=== PATIENT | female | born 1990 | race Caucasian/White ===

== ENCOUNTER 2017-05-28 13:55 | Outpatient (CLI) | payer BC, MEDICAID ==
[~2017-05-28] VITALS: Ht 160 cm; Wt 79.0 kg
[2017-05-28 14:19] VITALS: BP 125/82
[2017-05-28] MEDS ORDERED: ACET50TA PO (15:08)
[2017-05-28] MEDS ORDERED: PRENTAB9 PO (15:08)
[2017-05-28 15:16] VITALS: BP 140/67
[2017-05-28 15:16] LABS: CALCIUM OXALATE CRYSTALS MODERATE
[2017-05-28] MEDS ORDERED: ONDANSETRON 4MG/2ML VIAL (J2405) IV PRN (15:30)
[2017-05-28] MEDS ORDERED: ACETAMINOPHEN 500 MG TAB PO PRN (15:30)
[2017-05-28] MEDS ORDERED: LACTATED RINGER'S 1000 ML IV ONE (15:30)
[2017-05-28] MEDS ORDERED: MORPHINE 2 MG/ML 1ML SYRINGE IV PRN (15:30)
[2017-05-28] MEDS ORDERED: LR 1,000 ML IV ONE ×2 (16:00→17:45)
--- NOTE | 2017-05-28 16:04 | IPNPDOC ---
Text Note Date of Service The patient was seen on 05/28/17 at 1515. NOTE Subjective: Patient is a 26-year-old female who is a at 20 weeks 5 days gestation with an JANICE of 10/10/2017 based off of her first trimester ultrasound. Her is a result of IVF and resulted in di di twin gestation. Her care was initiated with a woman's perspective at 13 weeks gestation. She presents to labor and delivery today with complaints of pain that started the right side of her back and has migrated down into the right lower quadrant. Reports pain to be localized. Patient reports the pain to constant but at times it becomes worse. Pain presently a 6 out of 10. Patient also vomited 1 time. She denies dysuria. She denies vaginal bleeding or leaking of fluid. Reports active movement. She does report some pressure. She denies having contractions. Medical history: Infertility and varicella-zoster as a child. Surgical history: Ovarian drilling and egg retrieval Family history: Unknown. Patient was adopted. Social history: Patient is . She denies the use of tobacco, alcohol, or drug use. Current medications: vitamins Allergies: Penicillin Objective: Vital signs: See below. heart rate on twin A done by Doppler is 145-155. Twin B heart rate is between 135 and 145. Abdomen: Gravid. Soft to palpation. No tenderness over uterus with palpation. Slight tenderness noted with deep palpation in the far right quadrant in line with her umbilicus. No CVA tenderness. Labs see below. Assessment: Di di twin gestation at 20 weeks 5 days, kidney stones, not in labor Plan: IV saline lock started. Lactated Ringer's bolus 1 L started and then to be ran at 250 mL's per hour. Zofran IV ordered for nausea. Morphine and Tylenol ordered for pain. Reviewed the potential diagnosis of kidney stones with patient and family in the plan of care. Patient verbalized understanding. We'll strain urine. Dr. Horowitz aware with plan and agrees with plan of care. VS,Fishbone, I+O VS, Fishbone, I+O Vital Signs Date Time Temp Pulse Resp B/P (MAP) Pulse Ox O2 Delivery O2 Flow Rate FiO2 05/28/17 14:19 99.3 99 16 125/82 (96) Item Value Date Time Urine Color MAGDI 05/28/17 1430 Urine Appearance TURBID H 05/28/17 1430 Urine pH 6.0 UNITS 05/28/17 1430 Urine Specific [place] 1.018 05/28/17 1430 Urine Protein 1+ mg/dL H 05/28/17 1430 Urine Glucose (UA) NEGATIVE mg/dL 05/28/17 1430 Urine Ketones 1+ mg/dL H 05/28/17 1430 Urine Blood NEGATIVE 05/28/17 1430 Urine Nitrite NEGATIVE 05/28/17 1430 Urine Bilirubin NEGATIVE 05/28/17 1430 Urine Urobilinogen 0.2 mg/dL 05/28/17 1430 Urine Leukocyte Esterase NEGATIVE 05/28/17 1430 Urine WBC (Auto) 10 /HPF H 05/28/17 1430 Urine RBC (Auto) 6 /HPF H 05/28/17 1430 Urine Hyaline Casts (Auto) 0 /LPF 05/28/17 1430 Urine Bacteria (Auto) 1+ H 05/28/17 1430 Urine Calcium Oxalate Cryst (Auto) MODERATE 05/28/17 1430 Urine Squamous Epithelial Cells 12 /HPF 05/28/17 1430 Urine Amorphous Sediment SMALL H 05/28/17 1430 Urine Mucus (Auto) LARGE 05/28/17 1430 THAD MCDONALD CNM May 28, 2017 16:04
[2017-05-28] MEDS ORDERED: ONDANSETRON 4MG/2ML VIAL (J2405) IV ONE (18:15)
[2017-05-28] MEDS ORDERED: MORPHINE 2 MG/ML 1ML SYRINGE IV ONE (18:15)
--- NOTE | 2017-05-28 19:10 | REPUSA ---
Clinical history: Renal stone. Findings: The right kidney measures 10.9 x 5.1 x 5.0 cm. The left kidney measures 12.1 x 6.5 x 5.2 cm . The kidneys demonstrate normal echotexture and echogenicity. There is no evidence of nephrolithiasi s. There is mild right-sided hydronephrosis. No renal masses are seen. No free fluid is appreciated. Twin intrauterine are noted. Impression: Mild right-sided hydronephrosis, likely physiologic in the patient's . Otherwise unremarkable study.
[2017-05-28 19:45] LABS: BASO % 0.2 % (0.0-1.0); EOS # 0.1 K/mm3 (0.0-0.50); EOS % 0.6 % (0.0-3.0); LARGE UNSTAINED CELL % 0.3 % (0.0-4.0); LYMPH # 0.9 K/mm3 (1.5-6.5); LYMPH % 5.6 % (24.0-44.0); MEAN CORPUSCULAR HEMOGLOBIN 30.2 pg (27.0-33.0); MEAN CORPUSCULAR HGB CONC 34.9 g/dl (32.0-36.5); MEAN CORPUSCULAR VOLUME 86.5 fl (80.0-96.0); MONO # 0.3 K/mm3 (0.0-0.8); MONO % 2.1 % (0.0-5.0); NEUTROPHILS # 13.2 K/mm3 (1.8-7.7); NEUTROPHILS % 91.2 % (36.0-66.0); PLATELET COUNT, AUTOMATED 232 k/mm3 (150-450); RED CELL DISTRIBUTION WIDTH 13.4 % (11.5-14.5); WHITE BLOOD COUNT 14.5 K/mm3 (4.0-10.0)
[2017-05-28 19:47] VITALS: BP 101/54
[2017-05-28 20:17] LABS: ALBUMIN 2.6 GM/DL (3.2-5.2); ALBUMIN/GLOBULIN RATIO 0.93 (1.00-1.93); ALKALINE PHOSPHATASE 59 U/L (45-117); ALT/SGPT 14 U/L (12-78); AMYLASE 45 U/L (25-115); ANION GAP 12 MEQ/L (8-16); AST/SGOT 11 U/L (15-37); BILIRUBIN,TOTAL 0.4 MG/DL (0.2-1.0); BLOOD UREA NITROGEN 7 MG/DL (7-18); CALCIUM LEVEL 8.5 MG/DL (8.5-10.1); CARBON DIOXIDE LEVEL 24 MEQ/L (21-32); CHLORIDE LEVEL 107 MEQ/L (98-107); CREATININE FOR GFR 0.59 MG/DL (0.55-1.02); GLOMERULAR FILTRATION RATE > 60.0 (>60); GLUCOSE, FASTING 92 MG/DL (70-105); POTASSIUM SERUM 3.5 MEQ/L (3.5-5.1); SODIUM LEVEL 143 MEQ/L (136-145); TOTAL PROTEIN 5.4 GM/DL (6.4-8.2)
[2017-05-28] MEDS ORDERED: PROMETHAZINE INJ 25 MG/ML VIAL (J2550) IV ONE (21:00)
[2017-05-28] MEDS: MORPHINE 4 MG/ML 1ML SYRINGE IV PRN ×2 (21:35→23:54)
--- NOTE | 2017-05-28 22:46 | IPNPDOC ---
Text Note Date of Service The patient was seen on 05/28/17 at 2000. NOTE Subjective: patient reports that she feels better currently with pain 4/10 and dull and constant. She had an episode for about 1.5 hours of sharp, colicky pain that is centralized and has moved slightly lower in the right lower quadrant. She rated her pain a 9/10. She also vomited 5 times when she had that pain. She denies feeling any contractions, denies back pain, denies leaking of fluid, or vaginal bleeding. Reports active movement. Objective: See labs below. [place]: occasional contractions noted that are very irregular. Assessment: Di/di twin gestation at 20.5 weeks gestation, nephrolithiasis, not in labor Plan: Labs completed and normal. Continue with IV fluids, IV pain management, and antiemetics. Dr. Horowitz aware of plan. VS,Fishbone, I+O VS, Fishbone, I+O Laboratory Tests 05/28/17 19:38 Red Blood Count 3.88 L, Mean Corpuscular Volume 86.5, Mean Corpuscular Hemoglobin 30.2, Mean Corpuscular Hemoglobin Concent 34.9, Red Cell Distribution Width 13.4, Neutrophils (%) (Auto) 91.2 H, Lymphocytes (%) (Auto) 5.6 L, Monocytes (%) (Auto) 2.1, Eosinophils (%) (Auto) 0.6, Basophils (%) (Auto ) 0.2, Neutrophils # (Auto) 13.2 H, Lymphocytes # (Auto) 0.9 L, Monocytes # ( Auto) 0.3, Eosinophils # (Auto) 0.1, Basophils # (Auto) 0.0, Calcium Level 8.5, Aspartate Amino Transf (AST/SGOT) 11 L, Alanine Aminotransferase (ALT/SGPT) 14, Alkaline Phosphatase 59, Total Bilirubin 0.4, Total Protein 5.4 L, Albumin 2.6 L Item Value Date Time Sodium Level 143 MEQ/L 05/28/171937 Potassium Level 3.5 MEQ/L 05/28/171937 Chloride Level 107 MEQ/L 05/28/171937 Carbon Dioxide Level 24 MEQ/L 05/28/171937 Anion Gap 12 MEQ/L 05/28/171937 Blood Urea Nitrogen 7 MG/DL 05/28/171937 Creatinine 0.59 MG/DL 05/28/171937 Glomerular Filtration Rate > 60.0 05/28/171937 Fasting Glucose 92 MG/DL 05/28/171937 Calcium Level 8.5 MG/DL 05/28/171937 Total Bilirubin 0.4 MG/DL 05/28/171937 Aspartate Amino Transf (AST/SGOT) 11 U/L L 05/28/171937 Alanine Aminotransferase (ALT/SGPT) 14 U/L 05/28/171937 Alkaline Phosphatase 59 U/L 05/28/171937 Total Protein 5.4 GM/DL L 05/28/171937 Albumin 2.6 GM/DL L 05/28/171937 Albumin/Globulin Ratio 0.93 L 05/28/171937 Amylase Level 45 U/L 05/28/171937 Lipase 121 U/L 05/28/171937 Vital Signs Date Time Temp Pulse Resp B/P (MAP) Pulse Ox O2 Delivery O2 Flow Rate FiO2 05/28/17 21:35 18 05/28/17 19:47 98.5 100 101/54 (70) Renal ultrasound Findings: The right kidney measures 10.9 x 5.1 x 5.0 cm. The left kidney measures 12.1 x 6.5 x 5.2 cm. The kidneys demonstrate normal echotexture and echogenicity. There is no evidence of nephrolithiasis. There is mild right- sided hydronephrosis. No renal masses are seen. No free fluid is appreciated. Twin intrauterine are noted. Impression: Mild right-sided hydronephrosis, likely physiologic in the patient' s . Otherwise unremarkable study. THAD MCDONALD CNM May 28, 2017 22:46
[2017-05-29] MEDS: ONDANSETRON 4MG/2ML VIAL (J2405) IV PRN ×2 (00:03→06:33)
[2017-05-29 00:12] VITALS: BP 112/71
[2017-05-29] MEDS ORDERED: MORPHINE 2 MG/ML 1ML SYRINGE As Ordered ONE (07:00)
[2017-05-29 07:14] VITALS: BP 117/75
[2017-05-29 09:30] VITALS: BP 111/68
[2017-05-29] MEDS ORDERED: PERCOCET 5MG/325MG TAB PO PRN (10:45)
[2017-05-29 11:30] VITALS: BP 116/70
[2017-05-29 14:36] VITALS: BP 118/66
[2017-05-29] MEDS ORDERED: OXYC1TAB23 PO (15:12)
[2017-05-29] MEDS ORDERED: MACR100C43 PO (15:12)
== END 2017-05-29 15:16 | disposition home or self-care (01) ==
LOC: M LDO 13:55
PROVIDERS: ATTEND Advanced Practice Midwife
DX: O99.89 Other specified diseases and conditions complicating pregnancy, childbirth and the puerperium (principal); Z3A.20 20 weeks gestation of pregnancy; M54.5 Low back pain; R10.9 Unspecified abdominal pain; N20.0 Calculus of kidney; N39.0 Urinary tract infection, site not specified; Z88.0 Allergy status to penicillin
CPT/HCPCS: 36415; 76775; 80053; 81001; 82150; 83690; 85025; 87086; 96374; 96375; 96376; J2405

== ENCOUNTER 2017-05-30 09:38 | Outpatient (CLI) | payer BC ==
[~2017-05-30] VITALS: Ht 160 cm; Wt 82.0 kg
[~2017-05-30 09:38] MED LIST: ACET50TA PO; MACR100C43 PO; OXYC1TAB23 PO; PRENTAB9 PO
[2017-05-30] MEDS ORDERED: LACTATED RINGER'S 1000 ML IV STA (09:58)
[2017-05-30] MEDS ORDERED: MORPHINE 10 MG/ML 1ML VIAL IV ONE ×2 (10:00→14:30)
[2017-05-30] MEDS ORDERED: PROMETHAZINE INJ 25 MG/ML VIAL (J2550) IV PRN (10:00)
[2017-05-30 11:07] VITALS: BP 136/69
[2017-05-30] MEDS ORDERED: TAMSULOSIN 0.4 MG CAP PO ONE (11:45)
--- NOTE | 2017-05-30 12:05 | ED PDOC ---
Provider Note Subjective: Patient is a 26-year-old female who is a at 21 weeks gestation with an JANICE of 10/10/2017 based off of her first trimester ultrasound. Her is a result of IVF and resulted in di di twin gestation. She presents to labor and delivery today complaining of continued right-sided flank pain that is located right above her iliac crest on the right. She states that this morning she had some much pain she can stand up. The pain started on Monday, she was previously seen at [facility] on May 28 and . Urinalysis showed turbid hazy urine, protein +1, ketones +1 , WBC 10, RBC 6, urine bacteria 1+, moderate calcium oxalate crystals, and small amounts of amorphous sediment. She was discharged with Percocet and Macrobid secondary to UTI. Today, she reports her pain to be localized. Patient reports the pain to constant but at times it becomes worse. Pain presently a 4 out of 10. Patient admits to increased nausea and vomiting. She states that her urine is dark but denies dysuria. She denies vaginal bleeding or leaking of fluid. Reports active movement. She does report some pressure. She denies having contractions. Medical history: Infertility Surgical history: Ovarian drilling and egg retrieval Family history: Unknown. Patient was adopted. Social history: Patient is . She denies the use of tobacco, alcohol, or drug use. Current medications: Macrobid (day 2), Percocet when necessary for pain, vitamins Allergies: Penicillin Objective: Vital signs: Respiratory rate is 20, patient is afebrile. heart rate on twin A done by Doppler is in the 140s. Twin B heart rate is in the 150s. Abdomen: Gravid. Soft to palpation. No tenderness over uterus with palpation. Tenderness is noted on the right side, just above the right iliac crest. Back: Right-sided CVA tenderness. Pain increased from 4 to 7. Labs: Urinalysis: Color is yellow, protein +2, ketone +2, WBC 2, RBC 0, bacteria +1 Assessment: Di di twin gestation at 21 weeks, right-sided nephrolithiasis, UTI, not in labor Plan: 1. Right-sided nephrolithiasis: Observe outpatient, IV saline lock started. Lactated Ringer's bolus 1 L started and then to be ran at 125 mL's per hour. Promethazine 25 mg IV ordered for nausea. Morphine 5 mg ordered for pain. Tamsulosin 0.4 mg by mouth ordered once, patient will take when she is feeling like she can keep something down. 2. UTI: We'll continue Macrobid antibiotic, she is on day 2. ROBERT PLUMMER DO May 30, 2017 12:05
[2017-05-30] MEDS: LR 1,000 ML IV SCH ×2 (12:16→17:58)
[2017-05-30] MEDS ORDERED: ONDANSETRON 4MG/2ML VIAL (J2405) IV ONE (14:15)
[2017-05-30 14:21] VITALS: BP 134/77
[2017-05-30] MEDS: NITROFURANTOIN (MACROBID) 100 MG CAP PO SCH ×2 (14:44→20:54)
[2017-05-30 17:25] VITALS: BP 117/81
[2017-05-30] MEDS ORDERED: PERCOCET 5MG/325MG TAB PO PRN (17:45)
[2017-05-30] MEDS ORDERED: PROMETHAZINE 25 MG TAB PO ONE (17:45)
[2017-05-30 20:53] VITALS: BP 121/71
[2017-05-30 21:10] VITALS: BP 121/71
--- NOTE | 2017-05-30 23:18 | HPE ---
DATE OF ADMISSION: 05/30/2017 CHIEF COMPLAINT: Right flank pain. HISTORY OF PRESENT ILLNESS: The patient is a 26-year-old female who is G1, P0, 20 weeks gestation with an estimated date of confinement of 10/10/2017 based off of first trimester ultrasound. The is the result of IVF and resulted in dichorionic/diamniotic twin gestation. She presents to labor and delivery today complaining of continued right-sided flank pain that is located right above her iliac crest on the right. She states that this morning she had so much pain she could not stand up. The pain started on Monday. She was previously seen at [facility] on May 28 and . Urinalysis showed turbid hazy urine. Protein +1. Ketones +1. WBC 10, RBC 6, urine bacteria 1+, moderate calcium oxylate crystals and small amounts of amorphous sediment. She was discharged with Percocet and Macrobid secondary to urinary tract infection (UTI). Today she reports her pain to be localized. The patient reports the pain to be constant, but at times it becomes worse. Pain presently is a 4 out of 10. The patient admits to increased nausea and vomiting. She states that she has not been able to eat or drink anything overnight. She states that her urine is dark, but denies dysuria. She denies vaginal bleeding or leaking of fluid and she reports active movement. She does also report some pressure, but she denies having contractions. MEDICAL HISTORY: Infertility. SURGICAL HISTORY: Ovarian drilling and egg retrieval. FAMILY HISTORY: Unknown, patient was adopted. SOCIAL HISTORY: The patient is . She denies use of tobacco, alcohol or drug use. CURRENT MEDICATIONS: - Macrobid (hasn't started due to nausea) - Percocet as needed for pain - vitamins ALLERGIES: PENICILLIN PHYSICAL EXAMINATION: VITAL SIGNS: Temperature 98.6, pulse 97, respiratory rate 20, blood pressure 136/69 with a mean arterial pressure (MAP) of 91. heart rate done by Doppler: Twin A is in the 140s, Twin B with heart rate was in the 150s. Abdomen: Gravid. Soft to palpation. No tenderness over uterus with palpation. There is tenderness noted on the right side, just above the iliac crest. Back: Right- sided CVA tenderness. Mike punch positive on the right- pain increased from 4 to 7. LABS: Urinalysis. Color is yellow. Protein +2, ketones +2, WBC 2, RBC 0. Bacteria +1. ASSESSMENT: Dichorionic/diamniotic twin gestation at 21 weeks. Right-sided nephrolithiasis, UTI, not in labor. PLAN: 1. Right-sided nephrolithiasis. Observe outpatient. IV saline lock started. Lactated Ringer's bolus, 1 liter started and then to be run at 125 mL per hour. Promethazine 25 mg IV ordered for nausea. Morphine 5 mg ordered for pain. Tamsulosin 400 mcg by mouth ordered once, patient will take when she is feeling well enough to keep something down. 2. Urinary tract infection. We will start Macrobid when her nausea decreases. My preceptor for this patient encounter was Dr. Jess Rothman. The preceptor was physically present in the building during the encounter and was fully available. As needed, all aspects of the patient interview, examination, medical decision making process, and medical care plan development were reviewed and approved by the preceptor. The preceptor is aware and concurs with the plan as stated in the body of this note and will attest to such by his/her cosignature. GAURAVD
[2017-05-30] MEDS ORDERED: PROMETHAZINE 25 MG TAB PO PRN (23:30)
[2017-05-31 01:06] VITALS: BP 110/55
[2017-05-31] MEDS: LR 1,000 ML IV SCH (01:58)
[2017-05-31 04:57] VITALS: BP 128/76
[2017-05-31 07:24] VITALS: BP 133/66
[2017-05-31] MEDS: NITROFURANTOIN (MACROBID) 100 MG CAP PO SCH (08:00)
== END 2017-05-31 08:30 | disposition home or self-care (01) ==
LOC: M LDO 09:38
PROVIDERS: ATTEND Obstetrics & Gynecology
DX: O99.89 Other specified diseases and conditions complicating pregnancy, childbirth and the puerperium (principal); R10.9 Unspecified abdominal pain; O30.042 Twin pregnancy, dichorionic/diamniotic, second trimester; N20.0 Calculus of kidney; Z88.0 Allergy status to penicillin; O23.42 Unspecified infection of urinary tract in pregnancy, second trimester; O21.9 Vomiting of pregnancy, unspecified
CPT/HCPCS: 59025; 76815; 81001; 96374; 96375; 96376; J2405

== ENCOUNTER → 2017-06-15 | Outpatient (CLI) | payer BC ==
--- NOTE | 2017-06-15 16:35 | REP ---
TWIN OB ULTRASOUND: Real-time sonographic evaluation of the gravid uterus is performed. There is a living diamniotic dichorionic twin gestation. Placenta is posterior for fetus A and anterior for fetus B, grade 1, with no previa or abruption. Cervix is closed and measures 4.4 cm in length. The estimated gestational age is 23 weeks 2 days with EDC 10/10/2017. There is appropriate concordant growth. FETUS A: BPD 56 mm = 23 weeks 1 day, at the 47th percentile. HC 211 mm = 23 weeks 1 day, at the 46th percentile. AC 182 mm = 23 weeks 0 days, at the 44th percentile. Femur length 42 mm = 23 weeks 4 days, at the 57th percentile. HC/AC ratio 1.16 within normal range. Estimated weight 576 grams at the 43rd percentile. Cervix is closed measures 4.4 cm in length. heart rate 136 beats per minute. Amniotic fluid appears within normal limits with the deepest pocket of fluid around fetus A, 4.6 cm. Visualized anatomy today includes the posterior fossa, four chamber heart, stomach, cord insertion, three vessel cord and bladder. position is vertex on the maternal left side. FETUS B: BPD 56 mm = 23 weeks 1 day, at the 46th percentile. HC 219 mm = 24 weeks 0 days, at the 70th percentile. AC 185 mm = 23 weeks 2 days, at the 49th percentile. Femur length 42 mm = 23 weeks 4 days, at the 58th percentile. HC/AC ratio 1.19 within normal range. Estimated weight 596 grams at the 49th percentile. heart rate 147 beats per minute. Amniotic fluid appears within normal limits with the deepest pocket of fluid around fetus B, 6.0 cm. Visualized anatomy today includes the lateral ventricles, posterior fossa, four chamber heart, ventricular outflow tracts, stomach, cord insertion, three vessel cord, kidneys and bladder which are all grossly unremarkable. position is transverse with head toward the maternal left side, with the fetus located on the maternal right side. Signed by Luis Fowler MD 06/15/2017 05:11 P
== END ==
LOC: M SMT 13:58
PROVIDERS: ATTEND Specialist
DX: O30.041 Twin pregnancy, dichorionic/diamniotic, first trimester (principal); Z3A.23 23 weeks gestation of pregnancy

== ENCOUNTER → 2017-07-07 | Outpatient (CLI) | payer BC ==
[~2017-07-07] MED LIST changes: +FLUT1LOT EX; +URSO1TAB6 PO
[2017-07-07 13:56] LABS: BASO % 0.4 % (0.0-1.0); EOS # 0.1 K/mm3 (0.0-0.50); EOS % 0.7 % (0.0-3.0); LARGE UNSTAINED CELL # 0.1 K/mm3 (0.0-0.4); LARGE UNSTAINED CELL % 1.1 % (0.0-4.0); LYMPH # 1.2 K/mm3 (1.5-6.5); LYMPH % 9.9 % (24.0-44.0); MEAN CORPUSCULAR HEMOGLOBIN 30.1 pg (27.0-33.0); MEAN CORPUSCULAR HGB CONC 34.4 g/dl (32.0-36.5); MEAN CORPUSCULAR VOLUME 87.6 fl (80.0-96.0); MONO # 0.5 K/mm3 (0.0-0.8); MONO % 4.2 % (0.0-5.0); NEUTROPHILS # 10.1 K/mm3 (1.8-7.7); NEUTROPHILS % 83.7 % (36.0-66.0); PLATELET COUNT, AUTOMATED 281 k/mm3 (150-450); RED CELL DISTRIBUTION WIDTH 13.5 % (11.5-14.5)
== END ==
LOC: M SMT 10:45
PROVIDERS: ATTEND Specialist
DX: O30.041 Twin pregnancy, dichorionic/diamniotic, first trimester (principal)

== ENCOUNTER → 2017-07-12 | Outpatient (CLI) | payer BC | LOC: M LAB 08:26 | PROVIDERS: ATTEND Specialist | DX: O30.042 Twin pregnancy, dichorionic/diamniotic, second trimester (principal); Z3A.00 Weeks of gestation of pregnancy not specified ==

== ENCOUNTER → 2017-07-26 | Outpatient (CLI) | payer BC ==
--- NOTE | 2017-07-27 08:32 | REP ---
Clinical: well-being -- Twin gestation. Comparison: 06/15/2017 . Findings: Examination demonstrates known diamniotic dichorionic twin gestation with placenta identified posteriorly and grade 1 (twin A) and anteriorly and grade 1 (twin B) without evidence for placenta previa or abruption. Cervix measures 3.2 cm cm in length and appears closed. Gestational age by LMP and first US 29 weeks 1 day with JANICE 10/10/2017 . TWIN A: Twin A identified in transverse (head to maternal right) presentation along the maternal left side. motion is appreciated. Amniotic fluid volume is normal and the deepest pocket measures 3.5 cm. Gestational age by current measurements 29 weeks 2 days. FHR equals 141 beats per minute. Estimated weight 1404 grams ( 51st percentile). Biophysical profile score equals 8/8 Umbilical cord SD ratio equals 4.09 (2.50 - 3.50) ------- TWIN B: Twin B identified in transverse (head to maternal left) presentation along the maternal right side. motion is appreciated. Amniotic fluid volume is normal and the deepest pocket measures 3.9 cm. Gestational age by current measurements 30 weeks 3 days. FHR equals 141 beats per minute. Estimated weight 1637 grams ( 82nd percentile). Biophysical profile score equals 8/8 Umbilical cord SD ratio equals 3.71 (2.50 - 3.50) Impression: 1. Twin gestation with growth as documented above. 2. Umbilical cord SD ratio is are mildly elevated. Signed by Jovani Salgado MD 07/27/2017 08:23 A
== END ==
LOC: M SMT 11:30
PROVIDERS: ATTEND Obstetrics & Gynecology
DX: O30.042 Twin pregnancy, dichorionic/diamniotic, second trimester (principal); Z3A.39 39 weeks gestation of pregnancy

== ENCOUNTER → 2017-07-31 | Outpatient (REF) | payer BC | LOC: M LAB REF 12:54 | PROVIDERS: ATTEND Advanced Practice Midwife | DX: Z34.83 Encounter for supervision of other normal pregnancy, third trimester (principal) ==

== ENCOUNTER → 2017-08-04 | Outpatient (CLI) | payer BC ==
--- NOTE | 2017-08-04 15:16 | REP ---
Obstetric ultrasound, twin gestation, follow-up for biophysical profile: There is a twin diamniotic dichorionic gestation. The placenta of twin A is anterior and grade 1. The placenta of twin B A is posterior grade one. There is no placenta previa or abruptio. Twin A is in a transverse lie with the head to the maternal right and situated slightly to the left of midline in the uterus. Twin B is in transverse lie with the head to the maternal left is joint is slightly to the right of midline in the uterus. The amniotic fluid volume for twin A is subjectively normal. The deepest amniotic fluid pocket is 6.6 cm. The amniotic fluid volume for twin B is subjectively normal. The deepest amniotic fluid pocket is 4.2 cm. Twin A biophysical profile Breathing 2 Movement 2 Tone 2 AFV 2 Total 8 /8 Twin B biophysical profile Breathing 2 Movement 2 Tone 2 AFV 2 Total 8/ 8 Twin A umbilical cord Doppler S/D ratio 3.27 (2.30-3.30) Resistive Index 7.0 (0.59-0.75 Diastolic Velocity 14.3 (>10 cm/sec) Twin B umbilical cord Doppler S/D ratio 2.94 (2.30-3.30) Resistive Index 0.66 (0.59-0.75 Diastolic Velocity 14.3 (>10 cm/sec) Signed by Luis Ornelas MD 08/04/2017 03:09 P
== END ==
LOC: M SMT 13:46
PROVIDERS: ATTEND Advanced Practice Midwife
DX: O30.042 Twin pregnancy, dichorionic/diamniotic, second trimester (principal)

== ENCOUNTER → 2017-08-05 | Outpatient (CLI) | payer BC ==
[2017-08-05 16:29] LABS: ALBUMIN 2.4 GM/DL (3.2-5.2); ALBUMIN/GLOBULIN RATIO 0.77 (1.00-1.93); BILIRUBIN,DIRECT 0.2 MG/DL (0.0-0.2); BILIRUBIN,TOTAL 0.4 MG/DL (0.2-1.0); TOTAL PROTEIN 5.5 GM/DL (6.4-8.2)
== END ==
LOC: M LAB 15:29
PROVIDERS: ATTEND Specialist
DX: O26.613 Liver and biliary tract disorders in pregnancy, third trimester (principal)

== ENCOUNTER → 2017-08-14 | Outpatient (CLI) | payer BC ==
--- NOTE | 2017-08-15 04:36 | REP ---
Clinical: Growth evaluation -- Twin gestation. Comparison: 08/04/2017 . Findings: Examination demonstrates known advanced diamniotic dichorionic twin gestation with placenta identified posterior and grade one for twin A, and anterior and grade 1 for twin B without evidence for placenta previa or abruption. Cervix appears closed. Gestational age by LMP 31 weeks 6 days with estimated date of delivery 10/10/2017. TWIN A: Twin A identified in breech presentation along the maternal left side. motion is appreciated. Amniotic fluid volume is normal and the deepest pocket measures 3.3 cm. Gestational age by current measurements 31 weeks 1 day. FHR equals 150 beats per minute. Estimated weight 1776 grams ( 35th percentile). Biophysical profile score equals 8/8. Umbilical cord SD ratio equals 3.41. ------- TWIN B: Twin B identified in variable presentation along the maternal right side. motion is appreciated. Amniotic fluid volume is normal and the deepest pocket measures 4.4 cm. Gestational age by current measurements 32 weeks 6 days. FHR equals 139 beats per minute. Estimated weight 2057 grams ( 62nd percentile). Biophysical profile score equals 8/8. Umbilical cord SD ratio equals 3.03 Impression: Advanced diamniotic dichorionic twin gestation demonstrating growth within normal range. Biophysical profile score equals 8/8 for each twin. Signed by Jovani Salgado MD 08/15/2017 04:27 A
== END ==
LOC: M SMT 13:27
PROVIDERS: ATTEND Advanced Practice Midwife
DX: O30.042 Twin pregnancy, dichorionic/diamniotic, second trimester (principal)

== ENCOUNTER 2017-09-07 15:43 | Outpatient (CLI) | payer BC ==
[~2017-09-07 15:43] MED LIST changes: -FLUT1LOT EX; -IBUP80TA PO; -RA C PO; -URSO1TAB6 PO
[2017-09-07] MEDS ORDERED: BETAMETHASONE SOLUSPAN 6MG/ML INJ 5ML (J0702) IM ONE (16:00)
[2017-09-08] MEDS ORDERED: URSO1TAB6 PO (10:33)
[2017-09-08] MEDS ORDERED: FLUT1LOT EX (10:33)
== END 2017-09-07 16:05 | disposition home or self-care (01) ==
LOC: M LDO 15:43
PROVIDERS: ATTEND Advanced Practice Midwife
DX: Z34.83 Encounter for supervision of other normal pregnancy, third trimester (principal)
CPT/HCPCS: 96372; J0702

== ENCOUNTER → 2017-09-07 | Outpatient (REF) | payer BC ==
[~2017-09-07] MED LIST changes: +IBUP80TA PO; +RA C PO
== END ==
LOC: M LAB REF 16:53
PROVIDERS: ATTEND Obstetrics & Gynecology
DX: O30.043 Twin pregnancy, dichorionic/diamniotic, third trimester (principal); Z3A.00 Weeks of gestation of pregnancy not specified

== ENCOUNTER 2017-09-08 15:56 | Outpatient (CLI) | payer BC ==
[~2017-09-08] VITALS: Ht 160 cm; Wt 90.7 kg
[~2017-09-08 15:56] MED LIST changes: +FLUT1LOT EX; +URSO1TAB6 PO
[2017-09-08] MEDS ORDERED: BETAMETHASONE SOLUSPAN 6MG/ML INJ 5ML (J0702) IM ONE (16:15)
== END 2017-09-08 16:20 | disposition home or self-care (01) ==
LOC: M LDO 15:56
PROVIDERS: ATTEND Specialist
DX: Z34.83 Encounter for supervision of other normal pregnancy, third trimester (principal)
CPT/HCPCS: 96372; J0702

== ENCOUNTER → 2017-09-11 | Outpatient (CLI) | payer BC ==
[~2017-09-11] MED LIST changes: +IBUP80TA PO; +RA C PO
--- NOTE | 2017-09-11 17:48 | REP ---
OB ULTRASOUND, TWIN GESTATION, BIOPHYSICAL PROFILE: Real-time ultrasound evaluation of gravid uterus performed. There is a living intrauterine diamniotic dichorionic twin gestation. Placenta twin A is posterior and grade 3 and twin B is anterior and grade 3 with no previa or abruption. Estimated gestational age reportedly 35 weeks 6 days. Fetus A: heart rate 131 beats per minute. Amniotic fluid lower limits of normal with deepest pocket fluid around fetus A 2.7 cm. Biophysical profile score is 8 out of 8. S/D ratio umbilical artery 2.15. position breech on the maternal left side. Fetus B: heart rate 136 beats per minute. Amniotic fluid within normal limits with deepest pocket of fluid 3.4 cm. Biophysical profile score 8 out of 8. S/D ratio 1.98. position breech on the maternal right side. Signed by Luis Fowler MD 09/12/2017 01:22 P
== END ==
LOC: M RAD 15:55
PROVIDERS: ATTEND Advanced Practice Midwife
DX: O30.042 Twin pregnancy, dichorionic/diamniotic, second trimester (principal); Z3A.35 35 weeks gestation of pregnancy

== ENCOUNTER 2017-09-12 07:38 | Inpatient (IN) | payer BC ==
[~2017-09-12] VITALS: Ht 160 cm; Wt 88.9 kg
[2017-09-12] VITALS (8 sets, daily range): BP systolic 108–138; BP diastolic 56–89
[~2017-09-12 07:38] MED LIST changes: -IBUP80TA PO; -RA C PO
[2017-09-12] MEDS ORDERED: LACTATED RINGER'S 1000 ML IV STA (07:51)
[2017-09-12] MEDS ORDERED: CLINDAMYCIN 900 MG in APPROPRIATE DILUENT 1 EA IV ONE (08:00)
[2017-09-12] MEDS ORDERED: BICITRA 30ML SOLN UDC PO ONE (08:00)
[2017-09-12] MEDS ORDERED: LR 1,000 ML IV SCH ×2 (08:00→12:15)
[2017-09-12 08:17] LABS: MEAN CORPUSCULAR HEMOGLOBIN 27.1 pg (27.0-33.0); MEAN CORPUSCULAR HGB CONC 32.8 g/dl (32.0-36.5); MEAN CORPUSCULAR VOLUME 82.7 fl (80.0-96.0); PLATELET COUNT, AUTOMATED 226 10^3/uL (150-450); RED CELL DISTRIBUTION WIDTH 15.1 % (11.5-14.5); WHITE BLOOD COUNT 11.9 10^3/uL (4.0-10.0)
[2017-09-12] MEDS ORDERED: GENTAMICIN 150 MG in D5W 50 ML IV ONE (10:00)
[2017-09-12] MEDS ORDERED: METOCLOPRAMIDE INJ 10MG/2ML VIAL (J2765) IV PRN ×2 (10:45→12:15)
[2017-09-12] MEDS ORDERED: ONDANSETRON 4MG/2ML VIAL (J2405) IV PRN ×3 (10:45→12:15)
[2017-09-12] MEDS ORDERED: NALOXONE INJ 0.4 MG/1 ML VIAL (J2310) IV PRN ×2 (10:45)
[2017-09-12] MEDS ORDERED: NALBUPHINE HCL 10 MG/ML AMP (J2300) IV PRN (10:45)
[2017-09-12] MEDS ORDERED: OXYTOCIN DRIP 30 UNITS in APPROPRIATE DILUENT 1 EA IV SCH (11:57)
[2017-09-12] MEDS ORDERED: PERCOCET 5MG/325MG TAB PO PRN ×2 (12:00→12:15)
[2017-09-12] MEDS ORDERED: PROMETHAZINE 25 MG TAB PO PRN (12:00)
[2017-09-12] MEDS ORDERED: RHOGAM 300 MCG (1500 IU) INJ (J2790) IM SCH (12:00)
[2017-09-12] MEDS: KETOROLAC 30 MG/ML VIAL (J1885) IV SCH ×2 (12:00→17:33)
[2017-09-12] MEDS ORDERED: METHYLERGONOVINE MALEATE 0.2 MG/ML VIAL (J2210) IM PRN (12:00)
[2017-09-12] MEDS ORDERED: MEASLES,MUMPS,RUBELLA VACCINE INJ (MMR-II) (90707) SC SCH (12:00)
[2017-09-12] MEDS ORDERED: MEPERIDINE INJ 25 MG/ML VIAL (J2175) IV PRN (12:15)
[2017-09-12] MEDS ORDERED: fentaNYL 100 MCG/2 ML INJECTION (J3010) IV PRN (12:15)
[2017-09-12] MEDS: LR 1,000 ML IV SCH ×2 (17:33→20:41)
[2017-09-12] MEDS ORDERED: LR 1,000 ML IV ONE (17:50)
[2017-09-12] MEDS: DOCUSATE SODIUM 100 MG CAP PO SCH (20:41)
[2017-09-12] MEDS ORDERED: LACTATED RINGER'S 1000 ML IV ONE (22:45)
[2017-09-13] MEDS: KETOROLAC 30 MG/ML VIAL (J1885) IV SCH ×2 (00:19→06:06)
[2017-09-13 02:13] VITALS: BP 99/50
[2017-09-13] MEDS: PERCOCET 5MG/325MG TAB PO PRN ×3 (04:42→21:17)
[2017-09-13 06:04] VITALS: BP 90/51
[2017-09-13 06:37] LABS: MEAN CORPUSCULAR HEMOGLOBIN 26.4 pg (27.0-33.0); MEAN CORPUSCULAR HGB CONC 31.5 g/dl (32.0-36.5); MEAN CORPUSCULAR VOLUME 83.7 fl (80.0-96.0); PLATELET COUNT, AUTOMATED 184 10^3/uL (150-450); WHITE BLOOD COUNT 11.9 10^3/uL (4.0-10.0)
[2017-09-13] MEDS ORDERED: OXYC1TAB23 PO (08:36)
[2017-09-13] MEDS ORDERED: IBUP80TA PO (08:37)
[2017-09-13] MEDS ORDERED: RA C PO (08:39)
[2017-09-13 10:00] VITALS: BP 115/56
[2017-09-13] MEDS: PRENATAL VITAMINS CHEWABLE TABLET PO SCH (10:09)
[2017-09-13] MEDS: DOCUSATE SODIUM 100 MG CAP PO SCH ×2 (10:09→21:16)
[2017-09-13] MEDS: LR 1,000 ML IV SCH ×2 (11:57→19:57)
[2017-09-13] MEDS: IBUPROFEN 800 MG TAB PO SCH ×2 (13:48→21:17)
[2017-09-13 14:00] VITALS: BP 122/58
[2017-09-13 18:00] VITALS: BP 124/61
[2017-09-13 22:00] VITALS: BP 103/51
[2017-09-14] MEDS: LR 1,000 ML IV SCH ×2 (03:57→08:00)
[2017-09-14] MEDS: IBUPROFEN 800 MG TAB PO SCH (05:31)
[2017-09-14] MEDS: PERCOCET 5MG/325MG TAB PO PRN ×2 (05:32→12:46)
[2017-09-14 06:00] VITALS: BP 130/83
[2017-09-14] MEDS: PRENATAL VITAMINS CHEWABLE TABLET PO SCH (07:42)
[2017-09-14] MEDS: DOCUSATE SODIUM 100 MG CAP PO SCH (07:43)
[2017-09-14] MEDS ORDERED: OXYC1TAB23 PO (10:02)
--- NOTE | 2017-09-14 11:24 | DSES ---
DATE OF ADMISSION: 09/12/2017 DATE OF DISCHARGE: 27-year-old (G) 1, para (P) 1, female at 36 weeks gestation, presents for primary section due to twin and indication for early delivery is cholestasis of . She also has asymmetrical growth of two twins. Patient did receive betamethasone course prior to scheduled delivery. HOSPITAL COURSE: On 09/12/2017, the patient underwent primary low transverse section for twins in breech presentation. Procedure was without complication. Her postoperative course was unremarkable. She had adequate return of bladder and bowel function. She was deemed stable for discharge on postoperative day #2. ADMISSION DIAGNOSIS: , 36 weeks, twins. DISCHARGE DIAGNOSIS: Delivered. PROCEDURE: Primary low transverse section. DISPOSITION: Instructions reviewed. Patient will followup with Dr. Sanchez in 2 weeks.
== END 2017-09-14 14:15 | disposition home or self-care (01) | DRG 540 ==
LOC: M LDI 07:38 → M OBS 14:01
PROVIDERS: ADMIT Obstetrics & Gynecology; ATTEND Obstetrics & Gynecology
PROC: 10D00Z1 Extraction of Products of Conception, Low, Open Approach (ICD-10-PCS; principal; 2017-09-12 09:45)
DX: O32.1XX0 Maternal care for breech presentation, not applicable or unspecified (principal); Z37.2 Twins, both liveborn; Z3A.36 36 weeks gestation of pregnancy; K83.1 Obstruction of bile duct; O26.62 Liver and biliary tract disorders in childbirth; O30.043 Twin pregnancy, dichorionic/diamniotic, third trimester

== ENCOUNTER → 2022-03-23 | Outpatient (CLI) | payer BC, OTHER ==
[~2022-03-23] MED LIST changes: -ACET50TA PO; +IBUP80TA PO; +MAPA500T2 PO; +RA C100C11 PO; -URSO1TAB6 PO; +URSO1TAB8 PO
== END ==
LOC: M WHC 08:58
PROVIDERS: ATTEND Nurse Practitioner Family
DX: N64.4 Mastodynia (principal)
CPT/HCPCS: 76642; 77065; G0279

== ENCOUNTER → 2025-08-19 | Outpatient (REF) | payer OTHER ==
[~2025-08-19] MED LIST changes: +URSO1TAB2 PO; -URSO1TAB8 PO
[2025-08-19 13:29] LABS: PLATELET COUNT, AUTOMATED 319 10^3/uL (150-450)
[2025-08-19 13:31] LABS: FREE T4 1.11 NG/DL (0.89-1.76)
[2025-08-19 13:33] LABS: ALT/SGPT 49 U/L (7.0-40); AST/SGOT 25 U/L (<34); CALCIUM LEVEL 9.5 MG/DL (8.5-10.1); CARBON DIOXIDE LEVEL 29 MMOL/L (20-31); CHLORIDE LEVEL 102 MMOL/L (98-107); CHOLESTEROL LEVEL 302 MG/DL (<200); CHOLESTEROL RISK RATIO 6.31 (<5); CREATININE FOR GFR 0.76 MG/DL (0.55-1.30); GLOMERULAR FILTRATION RATE > 90.0 (>60); LDL CHOLESTEROL 183.4 MG/DL (<100); NON-HDL-C 254.2 MG/DL; POTASSIUM SERUM 4.2 MMOL/L (3.5-5.1); SODIUM LEVEL 141 MMOL/L (136-145); TOTAL 25(OH) VITAMIN D 20.4 NG/ML (20.0-100.0); TRIGLYCERIDES LEVEL 354 MG/DL (<150)
[2025-08-19 13:43] LABS: ESTIMATED AVERAGE GLUCOSE 97.0 MG/DL (60-110)
== END ==
LOC: M SFHCADAM 08:01
PROVIDERS: ATTEND Physician Assistant
DX: E28.2 Polycystic ovarian syndrome (principal); Z68.32 Body mass index [BMI] 32.0-32.9, adult; Z13.220 Encounter for screening for lipoid disorders; R06.83 Snoring

== ENCOUNTER → 2025-09-08 | Outpatient (CLI) | payer OTHER | LOC: M RAD 16:47 | PROVIDERS: ATTEND Physician Assistant Medical | DX: J32.0 Chronic maxillary sinusitis (principal); J34.2 Deviated nasal septum ==